=== PATIENT | female | born 1945 | race Hispanic/Latino ===

== ENCOUNTER → 2017-08-15 | Outpatient (CLI) | payer MEDICARE | END | disposition home or self-care (01) | LOC: SHCH 14:57 | PROVIDERS: ATTEND Internal Medicine Cardiovascular Disease | DX: I87.2 Venous insufficiency (chronic) (peripheral) (principal) | CPT/HCPCS: 93970 ==

== ENCOUNTER 2019-06-10 12:54 | Inpatient (IN) | payer MEDICARE ==
[2019-06-10] VITALS (10 sets, daily range): BP systolic 118–154; BP diastolic 48–81
[~2019-06-10] VITALS: Ht 124.5 cm; Wt 95.3 kg
[2019-06-10 13:31] LABS: BASOPHILS % (AUTO) 0.4 % (0.0-5.0); EOSINOPHILS % (AUTO) 0.2 % (0.0-8.0); HEMATOCRIT 34.7 % (36-48); LYMPHOCYTES % (AUTO) 3.3 % (21.0-51.0); MEAN CORPUSCULAR HEMOGLOBIN 28.7 pg (27.0-33.0); MEAN CORPUSCULAR HGB CONC 33.4 g/dL (32.0-36.0); MEAN CORPUSCULAR VOLUME 85.9 fL (79-99); MONOCYTES % (AUTO) 6.9 % (3.0-13.0); NEUTROPHILS % (AUTO) 87.5 % (40.0-77.0); NUCLEATED RED BLOOD CELLS 0.3 % (0.0-0.19); PLATELET COUNT (AUTO) 46 K/uL (130-400); RED BLOOD CELL COUNT(AUTO) 4.04 MIL/uL (4.00-5.50); RED CELL DISTRIBUTION WIDTH 13.2 % (11.0-15.5); WHITE BLOOD COUNT (AUTO) 9.6 K/uL (4.8-10.8)
[2019-06-10 13:42] LABS: APPEARANCE,URINE Turbid (CLEAR); BILIRUBIN,URINE Small (NEGATIVE); COLOR,URINE Dark Yellow (YELLOW); GLUCOSE, URINE (UA) >=1000 mg/dL (NEGATIVE); KETONES,URINE Negative (NEGATIVE); LEUKOCYTE ESTERASE ,URINE Small (NEGATIVE); NITRATE,URINE Negative (NEGATIVE); OCCULT BLOOD,URINE Large (NEGATIVE); PROTEIN,URINE POS 2+ mg/dL (NEGATIVE)
[2019-06-10 13:44] LABS: BILIRUBIN,TOTAL 2.5 mg/dL (0.2-1.0); CREATININE 2.7 mg/dL (0.5-1.5); POTASSIUM 4.3 mmol/L (3.5-5.1); TOTAL PROTEIN, SERUM 6.6 g/dL (6.0-8.3)
[2019-06-10 13:45] LABS: PLATELET MORPHOLOGY COMMENT MARKED DECREASE
[2019-06-10] MEDS ORDERED: SODIUM CHLORIDE 0.9% 1000ML 2,000 ML IV ONE (13:51)
[2019-06-10] MEDS ORDERED: INSULIN HUMULIN R 100 UNIT/ML 3ML ONE (13:57)
[2019-06-10 14:09] LABS: AMORPHOUS SEDIMENT,UR Moderate /LPF (None Seen); BACTERIA,URINE Moderate /HPF (None Seen); SQUAMOUS EPITHELIAL CELL,UR 0-2 /HPF (0-2)
[2019-06-10] MEDS ORDERED: DOXYCYCLINE 100MG+NS 250ML 250 ML IV ONE (14:48)
[2019-06-10 14:51] LABS: INR > 7.00 (0.85-1.15); PARTIAL THROMBOPLASTIN TIME > 120.0 SEC (26.3-35.5); PROTHROMBIN TIME > 63.0 SEC (9.6-11.6)
[2019-06-10] MEDS ORDERED: GLUCAGON 1MG KIT 1 MG ML IM PRN (15:00)
[2019-06-10] MEDS: DOXYCYCLINE 100MG+NS 250ML 250 ML IV SCH (15:00)
[2019-06-10] MEDS: SODIUM CHLORIDE 0.9% 1000ML 1,000 ML IV SCH ×2 (15:00→19:30)
[2019-06-10] MEDS ORDERED: DEXTROSE 50%-WATER 50 ML DISP.SYRIN IV PRN (15:00)
[2019-06-10 15:11] LABS: ABG BASE EXCESS -5.3 mmol/L (-2.0-3.0); ABG HCO3 19.3 mmol/L (21.0-28.0); ABG OXYGEN SATURATION 96.8 % (95.0-99.0); ABG PCO2 35 mmHg (32-45)
[2019-06-10 15:58] LABS: HEMOGLOBIN A1C 10.5 % (4.0-6.0)
[2019-06-10] MEDS ORDERED: INSULIN HUMULIN R 100 UNIT/ML 3ML SQ SCH ×2 (16:30→18:15)
[2019-06-10] MEDS: ONDANSETRON HCL 4 MG/2 ML VIAL IVP PRN (17:17)
[2019-06-10] MEDS ORDERED: PHYTONADIONE 10 MG/1 ML AMP IM SCH (17:45)
[2019-06-10 17:59] LABS: CREATINE KINASE, TOTAL 28 U/L (21-232); GAMMA GLUTAMYL TRANSFERASE 208 U/L (5-85)
[2019-06-10] MEDS ORDERED: VANCOMYCIN PROTOCOL PER PHARMACY IV SCH (18:00)
[2019-06-10] MEDS ORDERED: VANCOMYCIN 1.5 GM in SODIUM CHLORIDE 0.9% 250 ML IV SCH (18:00)
[2019-06-10] MEDS ORDERED: RENAL DOSE IV PRN (18:00)
[2019-06-10 18:23] LABS: ALBUMIN 1.8 g/dL (3.5-5.0); CREATININE 2.5 mg/dL (0.5-1.5); POTASSIUM 4.3 mmol/L (3.5-5.1); TOTAL PROTEIN, SERUM 5.9 g/dL (6.0-8.3)
[2019-06-10 18:28] LABS: HEMATOCRIT 33.1 % (36-48); MEAN CORPUSCULAR HEMOGLOBIN 28.6 pg (27.0-33.0); MEAN CORPUSCULAR HGB CONC 33.2 g/dL (32.0-36.0); MEAN CORPUSCULAR VOLUME 86.2 fL (79-99); NUCLEATED RED BLOOD CELLS 0.3 % (0.0-0.19); PLATELET COUNT (AUTO) 39 K/uL (130-400); RED BLOOD CELL COUNT(AUTO) 3.84 MIL/uL (4.00-5.50); RED CELL DISTRIBUTION WIDTH 13.2 % (11.0-15.5); WHITE BLOOD COUNT (AUTO) 6.8 K/uL (4.8-10.8)
[2019-06-10] MEDS ORDERED: COMPOUND IV REFRIGERATED 1 EACH IVSOLN MISC PRN (18:30)
[2019-06-10] MEDS ORDERED: SODIUM CHLORIDE 0.9% 1000ML 1,000 ML IV SCH (18:30)
[2019-06-10] MEDS ORDERED: PHYTONADIONE 10 MG in SODIUM CHLORIDE 0.9% 50 ML IV SCH ×4 (18:45)
--- NOTE | 2019-06-10 19:00 | NUR ---
REPORT RECEIVED FROM PATRICE SIMS, MED SURG NURSE, AND PATIENT RECEIVED IN ROOM 219; REPORT GIVEN TO PATRICE CLARK AT BEDSIDE
[2019-06-10 19:12] LABS: INR > 7.00 (0.85-1.15); PARTIAL THROMBOPLASTIN TIME > 120.0 SEC (26.3-35.5)
[2019-06-10 19:13] LABS: PROTHROMBIN TIME > 63.0 SEC (9.6-11.6)
--- NOTE | 2019-06-10 19:20 | NUR ---
RECEIVED TRANSFER TO ROOM 219. AWAKE AND ALERT. DENIES PAIN. UP TO BR TO VOID AND HAD BM MIXED WITH URINE SO COULD NOT SEND SAMPLE AT THIS TIME. ASSISTED TO BED AND PLACED ON BED SIDE MONITOR. NIBP, AND PULSE OXIMETER PLACED. CALL LIGHT GIVEN TO HER AND EXPLAINED . ENCOURAGED TO CALL FOR WANTS OR NEEDS.
--- NOTE | 2019-06-10 19:40 | NUR ---
TRANSFER TO ROOM 219 Received patient from ER at 1645. Alert oriented X 4. Ambulatory. Continent. Had urine X 1 and one formed, dark bowel movement, not collected; pending for stool sample to be collected for occult blood test. Admission was started. Patient was receiving doxycycline IV at time of arrival. Dr. Alcantar was called and notified of consult. Patient had a blood sugar draw at time of lactic acid recheck. Patient requested to have intravenous peripheral catheter removed from right antecubital S/T it was hurting. Site intact-looking but removed as requested S/T complaints of tenderness. Dr. Sanches came to see patient and evaluted patient and had ample discussion with family. Orders were received to D/C regular insulin sliding scale and administered a one time dose of 5 units of regular insulin SQ to right abdomen for blood sugar level 390mg/dL. Also, she had a dose of 5mg of vitamin K IM to right deltoid. She had a new hep lock started to left anterior forearm # 20 g and a bolus of 1000mL of NS was started. Also, a second hep lock was started to right anterior forearm # 20g. Report was called to nurse Mary for patient to go to room 219 for higher level of care. Dr. Ruiz was notified of consult: he gave orders and have been entered. Patient and family kep updated at all times. Patient was transferred with no issues.
[2019-06-10 19:53] LABS: PHOSPHORUS 2.3 mg/dL (2.5-4.9); URIC ACID 9.7 mg/dL (2.6-7.2)
--- NOTE | 2019-06-10 19:53 | NUR ---
HOLTER MONITOR Patient came connected to a Holter Monitor ordered as an outpatient by Dr. Mejia and she was kept on it and started on telemetry as ordered by Dr. Sanches.
[2019-06-10] MEDS: INSULIN HUMULIN R 100 UNIT/ML 3ML SQ SCH (20:49)
[2019-06-10] MEDS ORDERED: LEVO112T7 PO (21:08)
[2019-06-10] MEDS ORDERED: METO25TA6 PO (21:08)
[2019-06-10] MEDS ORDERED: PRAV20TA4 PO (21:08)
[2019-06-10] MEDS ORDERED: CELE200 PO (21:08)
[2019-06-10] MEDS ORDERED: LOSA25TA41 PO (21:08)
[2019-06-10] MEDS ORDERED: WARF6TAB6 PO (21:08)
[2019-06-10] MEDS ORDERED: AMLO5TAB9 PO (21:08)
[2019-06-10] MEDS: ZOSYN 3.375GM+NS 50ML 50 ML IV SCH (21:42)
[2019-06-10 23:57] LABS: CREATININE 2.3 mg/dL (0.5-1.5); POTASSIUM 3.9 mmol/L (3.5-5.1)
[2019-06-11] VITALS (16 sets, daily range): BP systolic 106–155; BP diastolic 46–72
[2019-06-11 00:05] LABS: PARTIAL THROMBOPLASTIN TIME 69.5 SEC (26.3-35.5)
[2019-06-11 00:10] LABS: INR 4.62 (0.85-1.15)
[2019-06-11] MEDS ORDERED: DOXYCYCLINE 100MG+NS 250ML 250 ML IV ONE (02:42)
[2019-06-11 02:45] LABS: BASOPHILS % (AUTO) 0.5 % (0.0-5.0); EOSINOPHILS % (AUTO) 0.8 % (0.0-8.0); MEAN CORPUSCULAR HEMOGLOBIN 28.7 pg (27.0-33.0); MONOCYTES % (AUTO) 10.8 % (3.0-13.0); NEUTROPHILS % (AUTO) 81.5 % (40.0-77.0); NUCLEATED RED BLOOD CELLS 0.5 % (0.0-0.19); PLATELET COUNT (AUTO) 36 K/uL (130-400); RED BLOOD CELL COUNT(AUTO) 3.45 MIL/uL (4.00-5.50); RED CELL DISTRIBUTION WIDTH 13.4 % (11.0-15.5); WHITE BLOOD COUNT (AUTO) 8.9 K/uL (4.8-10.8)
[2019-06-11] MEDS: DOXYCYCLINE 100MG+NS 250ML 250 ML IV SCH ×2 (02:50→14:09)
[2019-06-11 02:59] LABS: ALBUMIN 1.7 g/dL (3.5-5.0); BILIRUBIN,DIRECT 1.6 mg/dL (0.0-0.3); BILIRUBIN,TOTAL 2.1 mg/dL (0.2-1.0); CREATININE 2.3 mg/dL (0.5-1.5); MAGNESIUM 2.5 mg/dL (1.80-2.40); PHOSPHORUS 1.8 mg/dL (2.5-4.9); POTASSIUM 3.9 mmol/L (3.5-5.1); TOTAL PROTEIN, SERUM 5.5 g/dL (6.0-8.3); URIC ACID 9.1 mg/dL (2.6-7.2)
[2019-06-11] MEDS: SODIUM CHLORIDE 0.9% 1000ML 1,000 ML IV SCH (05:56)
[2019-06-11] MEDS: INSULIN HUMULIN R 100 UNIT/ML 3ML SQ SCH ×4 (06:26→21:21)
[2019-06-11 07:29] LABS: CREATININE 2.3 mg/dL (0.5-1.5); POTASSIUM 3.7 mmol/L (3.5-5.1)
[2019-06-11] MEDS: ZOSYN 3.375GM+NS 50ML 50 ML IV SCH (09:52)
--- NOTE | 2019-06-11 14:47 | NUR ---
DC PLAN VISITED WITH PATIENT. PATIENT LIVES WITH SPOUSE. INDEPENDENT ABLE TO PERFORM ADL'S. PATIENT HAS NO SERVICES. WALKER AND WHEEL CHAIR AVAILABLE FROM PREVIOUS KNEE SURGERY. Addendum: 06/11/19 at 1448 by GEE CONTE RN CM Amended: Links added.
--- NOTE | 2019-06-11 16:50 | NUR ---
PT WAS ORDERED A DIET, SHE HAD BEEN NPO AND WAS GOING TO ASK FOR SOMETHING TO EAT YET WILL REQUEST ONLY JELLO. HE WAS ADVISED THAT SHE NEEDED TO EAT SOMETHING IN ORDER TO TREAT THE BS OF 226, SHE TOOK A JELLO WITHOUT ANY PROBLEMS.
[2019-06-11] MEDS: MEROPENEM 1 GM VIAL IVP SCH (20:00)
[2019-06-11] MEDS: ACETAMINOPHEN 325 MG TAB PO PRN (21:20)
--- NOTE | 2019-06-11 22:49 | NUR ---
RUN OF WIDE COMPLEX TACHYCARDIA STRIP VIEWED BY DR MERAZ, NEW ORDER FOR MAG, K , POS LEVELS STAT- LAB NOTIFIED. PT ASYMPTOMATIC
[2019-06-11 23:26] LABS: MAGNESIUM 1.9 mg/dL (1.80-2.40); PHOSPHORUS 2.3 mg/dL (2.5-4.9); POTASSIUM 3.6 mmol/L (3.5-5.1)
[2019-06-11] MEDS ORDERED: MAGNESIUM 2GM PREMIX 50ML 50 ML IV ONE (23:52)
[2019-06-11] MEDS ORDERED: POTASSIUM CHLORIDE 20MEQ/100ML 100 ML IV ONE (23:53)
[2019-06-11] MEDS ORDERED: LIDOCAINE HCL-MPF 1% 2ML VIAL ONE (23:56)
[2019-06-12] VITALS (7 sets, daily range): BP systolic 128–160; BP diastolic 46–78
[2019-06-12] MEDS ORDERED: POTASSIUM CHLORIDE 10% ELIXIR 20 MEQ/15 ML UDCUP PO PRN
[2019-06-12] MEDS ORDERED: LIDOCAINE HCL-MPF 1% 2ML VIAL IV PRN
[2019-06-12] MEDS ORDERED: POTASSIUM CHLORIDE 20 MEQ ERTAB PO PRN
[2019-06-12] MEDS ORDERED: MAGNESIUM 2GM PREMIX 50ML 50 ML IV PRN
[2019-06-12] MEDS ORDERED: POTASSIUM CHLORIDE 20MEQ/100ML 100 ML IV PRN
[2019-06-12] MEDS ORDERED: PHARMACY COMMUNICATION MISC SCH ×2 (02:30→06:45)
[2019-06-12] MEDS: DOXYCYCLINE 100MG+NS 250ML 250 ML IV SCH ×2 (02:50→15:16)
--- NOTE | 2019-06-12 02:52 | NUR ---
06/11/19 UNABLE TO GIVE 2000HR DOSE OF MERREM NOT PROFILED ON EMAR.
[2019-06-12] MEDS: MEROPENEM 1 GM VIAL IVP SCH (03:10)
[2019-06-12 03:59] LABS: BASOPHILS % (AUTO) 0.3 % (0.0-5.0); EOSINOPHILS % (AUTO) 0.8 % (0.0-8.0); HEMATOCRIT 30.1 % (36-48); LYMPHOCYTES % (AUTO) 6.7 % (21.0-51.0); MEAN CORPUSCULAR HEMOGLOBIN 28.8 pg (27.0-33.0); MEAN CORPUSCULAR HGB CONC 32.6 g/dL (32.0-36.0); MEAN CORPUSCULAR VOLUME 88.5 fL (79-99); MONOCYTES % (AUTO) 8.8 % (3.0-13.0); NEUTROPHILS % (AUTO) 78.3 % (40.0-77.0); NUCLEATED RED BLOOD CELLS 0.3 % (0.0-0.19); PLATELET COUNT (AUTO) 51 K/uL (130-400); RED CELL DISTRIBUTION WIDTH 14.1 % (11.0-15.5); WHITE BLOOD COUNT (AUTO) 9.1 K/uL (4.8-10.8)
[2019-06-12] MEDS: ONDANSETRON HCL 4 MG/2 ML VIAL IVP PRN ×3 (04:08→16:23)
[2019-06-12 04:23] LABS: ALBUMIN 1.5 g/dL (3.5-5.0); CREATININE 2.1 mg/dL (0.5-1.5); MAGNESIUM 2.4 mg/dL (1.80-2.40); PHOSPHORUS 2.2 mg/dL (2.5-4.9); POTASSIUM 3.9 mmol/L (3.5-5.1); TOTAL PROTEIN, SERUM 5.6 g/dL (6.0-8.3)
[2019-06-12 05:02] LABS: ERYTHROCYTE SEDIMENTATION RATE 106 MM/HR (0-30)
[2019-06-12] MEDS: ACETAMINOPHEN 325 MG TAB PO PRN ×2 (05:03→16:11)
[2019-06-12 05:04] LABS: CRP QUANTITATIVE 262.8 mg/L (0.00-9.0)
[2019-06-12] MEDS: INSULIN HUMULIN R 100 UNIT/ML 3ML SQ SCH ×4 (05:42→21:17)
[2019-06-12 07:13] LABS: HEPATITIS A ANTIBODY IGM Negative (Negative); HEPATITIS B CORE IGM Negative (Negative); HEPATITIS Bs ANTIGEN SCREEN P Negative (Negative)
--- NOTE | 2019-06-12 08:00 | NUR ---
PT HAS BEEN RESTING AND OFFERING N/C OF HEADACHE OR ANY DISCOMFORT.
[2019-06-12] MEDS ORDERED: CEFTRIAXONE SODIUM 500 MG VIAL IV SCH (09:00)
--- NOTE | 2019-06-12 11:05 | NUR ---
DR. AUGUSTIN ADVISED OF THE ESBL REPORT AND HE STATED THAT HE HAD MADE SOME CHANGES TO THE ANTIBIOTICS AND ADVISED PT AND DAUGHTER OF THE PLAN OF CARE.
--- NOTE | 2019-06-12 11:30 | NUR ---
PT HAD REQUESTED ZOFRAN FOR NAUSEA PRIOR TO EATING LUNCH, DAUGHTER AT BEDSIDE AND HAS BEEN ASSISTING WITH PT'S CARE.
--- NOTE | 2019-06-12 13:45 | NUR ---
PT IS BACK FROM SURGERY AND HAS A SIZE 8 SHILEY PT WAS CONNECTED TO SAME VENT SETTINGS BUT AT 100% FIO2. PT WAS CONNECTED TO TECHNICAL SERVICES REP AND SHOWING RSR RHYTHM. V/S DOCUMENTED.
--- NOTE | 2019-06-12 14:20 | NUR ---
N/G TUBE WAS PLACED WITHOUT DIFFICULTY AND ON INTERMITTENT SUCTION, DRAINING GREEN/YELLOW BILE.
--- NOTE | 2019-06-12 17:30 | NUR ---
DR. SUE HERE AND ORDERS NOTED FOR BIOPSY OF THE BONE BY IR AFTER HE SPOKE WITH RUBEN MCCAIN PT'S DAUGHTER. EXPLAINED TO PATIENT AND SON WHAT HE PLANNED TO DO IN ORDER TO DIAGNOSIS OR RULE OUT MDS.
[2019-06-12] MEDS ORDERED: LEVOTHYROXINE 112 MCG TABLET ONE (20:57)
[2019-06-13] VITALS (27 sets, daily range): BP systolic 124–183; BP diastolic 47–124
[2019-06-13 03:45] LABS: BASOPHILS % (AUTO) 0.3 % (0.0-5.0); EOSINOPHILS % (AUTO) 0.9 % (0.0-8.0); HEMATOCRIT 30.3 % (36-48); LYMPHOCYTES % (AUTO) 8.7 % (21.0-51.0); MEAN CORPUSCULAR HEMOGLOBIN 28.3 pg (27.0-33.0); MEAN CORPUSCULAR VOLUME 85.8 fL (79-99); MONOCYTES % (AUTO) 8.3 % (3.0-13.0); NEUTROPHILS % (AUTO) 73.8 % (40.0-77.0); NUCLEATED RED BLOOD CELLS 0.2 % (0.0-0.19); PLATELET COUNT (AUTO) 82 K/uL (130-400); RED BLOOD CELL COUNT(AUTO) 3.53 MIL/uL (4.00-5.50); RED CELL DISTRIBUTION WIDTH 14.2 % (11.0-15.5); WHITE BLOOD COUNT (AUTO) 12.4 K/uL (4.8-10.8)
[2019-06-13] MEDS: DOXYCYCLINE 100MG+NS 250ML 250 ML IV SCH ×2 (03:51→14:31)
[2019-06-13] MEDS: MEROPENEM 1 GM VIAL IVP SCH (03:52)
[2019-06-13 04:00] LABS: INR 3.25 (0.85-1.15); PARTIAL THROMBOPLASTIN TIME 46.2 SEC (26.3-35.5); PROTHROMBIN TIME 33.5 SEC (9.6-11.6)
[2019-06-13 04:05] LABS: ALBUMIN 1.5 g/dL (3.5-5.0); BILIRUBIN,TOTAL 1.8 mg/dL (0.2-1.0); CREATININE 1.9 mg/dL (0.5-1.5); MAGNESIUM 2.6 mg/dL (1.80-2.40); PHOSPHORUS 2.6 mg/dL (2.5-4.9); POTASSIUM 3.9 mmol/L (3.5-5.1); TOTAL PROTEIN, SERUM 5.7 g/dL (6.0-8.3)
[2019-06-13] MEDS: ONDANSETRON HCL 4 MG/2 ML VIAL IVP PRN ×3 (05:46→22:03)
[2019-06-13] MEDS: LEVOTHYROXINE 112 MCG TABLET PO SCH (05:46)
[2019-06-13] MEDS: INSULIN HUMULIN R 100 UNIT/ML 3ML SQ SCH ×4 (07:30→22:10)
[2019-06-13] MEDS ORDERED: SODIUM CHLORIDE 0.9% 1000ML 1,000 ML IV SCH (09:00)
--- NOTE | 2019-06-13 09:21 | NUR ---
PROCEDURE PATIENT SCHEDULED FOR BONE MARROW BIOPSY. COAGULATION LEVELS ELEVATED AND DR Annie AGRAWAL NOTIFIED. HE RECOMMENDS CORRECTION OF ABNORMAL LEVELS FOR AN INR 1.5 OR LOWER AND RESCHEDULE BIOPSY FOR TOMORROW. Adeline PIÑA RN NOTIFIED OF PROCEDURE OUTCOME.
--- NOTE | 2019-06-13 09:29 | NUR ---
DR MERAZ NOTIFIED VIA PHONE ABOUT CT BIOPSY OF BONE MARROW NOT BEING DONE TODAY DUE TO COAGULATION STUDIES, DR AGRAWAL RECOMMENDING TO CORRECT INR AT LEAST AT 1.5 OR LESS, CURRENTLY 3.25, PENDING ORDERS FROM .
[2019-06-13] MEDS ORDERED: LOSARTAN 50 MG TABLET PO SCH (09:30)
[2019-06-13] MEDS ORDERED: METOPROLOL TARTRATE 25 MG TAB PO SCH (09:30)
[2019-06-13] MEDS ORDERED: HYDRALAZINE HCL 20 MG/ML VIAL IV PRN (10:45)
[2019-06-13] MEDS ORDERED: PHYTONADIONE 10 MG/1 ML AMP SQ SCH (10:45)
--- NOTE | 2019-06-13 10:53 | NUR ---
NOTED WITH SB 53, ASYMPTOMATIC, DR CESAR PRESENT AT NURSES STATION, MD NOTIFIED ABOUT PT'S STATUS, NEW ORDERS GIVEN TO DISCONTINUE SCHEDULED METOPROLOL
[2019-06-13] MEDS: AMLODIPINE BESYLATE 5 MG TAB PO SCH (11:43)
[2019-06-13] MEDS: ACETAMINOPHEN 325 MG TAB PO PRN ×2 (12:35→22:04)
--- NOTE | 2019-06-13 14:24 | NUR ---
patient is receiving blood Plasma this PM. Will initiate PT evaluation 06/14/2019 Addendum: 06/13/19 at 1427 by ELMIRA BELTRÁN, PT PT Amended: Links added.
--- NOTE | 2019-06-13 20:39 | NUR ---
Transferred to room 232 accompanied by daughter Nancy via wheelchair after report given to PCCU nurse. Patient alert and oriented. No c/o pain, sob. Status unchanged. Care of patient endorsed to Cystal RN.
[2019-06-14] VITALS (9 sets, daily range): BP systolic 138–160; BP diastolic 57–89
[2019-06-14] MEDS: DOXYCYCLINE 100MG+NS 250ML 250 ML IV SCH (03:18)
[2019-06-14] MEDS: MEROPENEM 1 GM VIAL IVP SCH (03:19)
[2019-06-14] MEDS: ONDANSETRON HCL 4 MG/2 ML VIAL IVP PRN ×3 (03:19→21:53)
[2019-06-14 05:12] LABS: HEMATOCRIT 31.7 % (36-48); MEAN CORPUSCULAR HEMOGLOBIN 28.8 pg (27.0-33.0); MEAN CORPUSCULAR HGB CONC 33.4 g/dL (32.0-36.0); MEAN CORPUSCULAR VOLUME 86.1 fL (79-99); NUCLEATED RED BLOOD CELLS 0.1 % (0.0-0.19); PLATELET COUNT (AUTO) 142 K/uL (130-400); RED BLOOD CELL COUNT(AUTO) 3.68 MIL/uL (4.00-5.50); RED CELL DISTRIBUTION WIDTH 14.2 % (11.0-15.5); WHITE BLOOD COUNT (AUTO) 13.6 K/uL (4.8-10.8)
[2019-06-14] MEDS: LEVOTHYROXINE 112 MCG TABLET PO SCH (05:36)
[2019-06-14 05:39] LABS: ALBUMIN 1.9 g/dL (3.5-5.0); BILIRUBIN,TOTAL 1.7 mg/dL (0.2-1.0); CREATININE 1.7 mg/dL (0.5-1.5); INR 1.68 (0.85-1.15); PHOSPHORUS 2.4 mg/dL (2.5-4.9); POTASSIUM 3.6 mmol/L (3.5-5.1); PROTHROMBIN TIME 17.8 SEC (9.6-11.6); TOTAL PROTEIN, SERUM 6.4 g/dL (6.0-8.3)
[2019-06-14] MEDS: INSULIN HUMULIN R 100 UNIT/ML 3ML SQ SCH ×4 (06:58→21:00)
[2019-06-14] MEDS: AMLODIPINE BESYLATE 5 MG TAB PO SCH (08:19)
[2019-06-14] MEDS ORDERED: MIDAZOLAM HCL 1 MG/ML 2ML VIAL ONE (09:41)
[2019-06-14] MEDS ORDERED: FENTANYL CITRATE PF 50 MCG/1 ML 2ML VIAL ONE (09:41)
--- NOTE | 2019-06-14 10:49 | NUR ---
CT GUIDED BONE MARROW BIOPSY PROCEDURE PERFORMED BY DR. AGRAWAL. PUNCTURE SITE RIGHT LOWER LUMBAR/ILIAC CREST. PATIENT TOLERATED PROCEDURE WELL. SPECIMEN X 1 COLLECTED. SPECIMEN SENT TO LAB. END OF PROCEDURE AT 1052. BIOPSY NEEDLE REMOVED AND DRESSING APPLIED. NO BLEEDING NOTED. CALLED REPORT TO PATRICE GONZALES. PATIENT TRANSPORTED TO [facility] VIA BED AT 1125. PT STABLE, AAO X3 WITH NO C/O PAIN.
--- NOTE | 2019-06-14 15:10 | NUR ---
RDSCREEN - LOW ALBUMIN Pt NPO at time of screen. Pt with fluctuating appetite prior to NPO status. Pt with increased malnutrition risk, also with Obesity Class III (BMI 63.8); Recommend 30mL ProMod BID. Pt with altered nutrition related lab values secondary to endocrine and liver dysfunction (BG 203, AST 139, ALT 164). RD to continue to monitor. Please notify RD as additional nutrition concerns arise. Thank you. Addendum: 06/14/19 at [address] Amended: Links added.
[2019-06-14 17:09] LABS: ROCKY MT SPOTTED FEVER IGG <1:64 (Neg:<1:64); TYPHUS FEVER AB IGG <1:64 (Neg:<1:64)
[2019-06-14] MEDS: SODIUM CHLORIDE 0.9% 1000ML 1,000 ML IV SCH (17:40)
[2019-06-14] MEDS: ACETAMINOPHEN 325 MG TAB PO PRN (21:54)
[2019-06-14] MEDS: SIMVASTATIN 10 MG TABLET PO SCH (21:54)
[2019-06-15] VITALS: BP 131/57
[2019-06-15 03:56] VITALS: BP 162/72
[2019-06-15 05:17] LABS: BASOPHILS % (AUTO) 0.3 % (0.0-5.0); EOSINOPHILS % (AUTO) 1.3 % (0.0-8.0); LYMPHOCYTES % (AUTO) 14.1 % (21.0-51.0); MEAN CORPUSCULAR HEMOGLOBIN 28.7 pg (27.0-33.0); MONOCYTES % (AUTO) 4.7 % (3.0-13.0); NEUTROPHILS % (AUTO) 73.9 % (40.0-77.0); NUCLEATED RED BLOOD CELLS 0.1 % (0.0-0.19); PLATELET COUNT (AUTO) 189 K/uL (130-400); RED BLOOD CELL COUNT(AUTO) 3.45 MIL/uL (4.00-5.50); RED CELL DISTRIBUTION WIDTH 14.2 % (11.0-15.5); WHITE BLOOD COUNT (AUTO) 14.2 K/uL (4.8-10.8)
[2019-06-15 05:30] LABS: CREATININE 1.5 mg/dL (0.5-1.5); MAGNESIUM 1.8 mg/dL (1.80-2.40); PHOSPHORUS 2.9 mg/dL (2.5-4.9); POTASSIUM 3.8 mmol/L (3.5-5.1)
[2019-06-15] MEDS: LEVOTHYROXINE 112 MCG TABLET PO SCH (05:53)
[2019-06-15] MEDS: ONDANSETRON HCL 4 MG/2 ML VIAL IVP PRN ×4 (05:53→22:31)
[2019-06-15] MEDS: MEROPENEM 1 GM VIAL IVP SCH (05:53)
[2019-06-15 05:55] LABS: INR 1.26 (0.85-1.15); PARTIAL THROMBOPLASTIN TIME 29.6 SEC (26.3-35.5); PROTHROMBIN TIME 13.5 SEC (9.6-11.6)
[2019-06-15] MEDS: INSULIN HUMULIN R 100 UNIT/ML 3ML SQ SCH ×2 (05:56→12:10)
[2019-06-15 08:14] VITALS: BP 148/60
[2019-06-15] MEDS: AMLODIPINE BESYLATE 5 MG TAB PO SCH (10:40)
[2019-06-15] MEDS: SODIUM CHLORIDE 0.9% 1000ML 1,000 ML IV SCH ×2 (15:31→15:33)
--- NOTE | 2019-06-15 16:04 | NUR ---
cm note orders received for AIU at [facility] gil spoke to daughter lionel. and in agreement, referral faxed to [facility]. spoke to edi at [facility] states received clinical information and will forward information to their pharmacy and will let cm know if can accept. updated pts daughter lionel on above, and in agreement. informed she would have to go register patient at [facility] when they approve. verbalizes understanding.
[2019-06-15 16:09] VITALS: BP 138/68
[2019-06-15] MEDS: INSULIN LISPRO 100 UNIT/ML 3ML SQ SCH ×3 (17:19→22:48)
[2019-06-15 20:00] VITALS: BP 152/58
--- NOTE | 2019-06-15 22:00 | NUR ---
PT REQUESTED ZOFRAN AND TYLENOL FOR NAUSEA AND PAIN. ABLE TO AMBULATE WITH ASSIST. HAD BOWEL MOVEMENT. PT STATED NO FURTHER CONCERNS. MEDICATIONS GIVEN SCHEDULED. PICC LINE PATENT. INSERTED TODAY.
[2019-06-15] MEDS: SIMVASTATIN 10 MG TABLET PO SCH (22:24)
[2019-06-15] MEDS: ACETAMINOPHEN 325 MG TAB PO PRN (22:31)
[2019-06-15] MEDS: INSULIN GLARGINE 100 UNITS/ML 10 ML VIAL SQ SCH (22:48)
[2019-06-16] VITALS: BP 134/60
[2019-06-16 03:48] LABS: ALBUMIN 1.6 g/dL (3.5-5.0); BILIRUBIN,DIRECT 0.5 mg/dL (0.0-0.3); BILIRUBIN,TOTAL 0.9 mg/dL (0.2-1.0); CREATININE 1.4 mg/dL (0.5-1.5); POTASSIUM 3.8 mmol/L (3.5-5.1); TOTAL PROTEIN, SERUM 5.6 g/dL (6.0-8.3)
[2019-06-16 04:24] VITALS: BP 143/60
[2019-06-16] MEDS: MEROPENEM 1 GM VIAL IVP SCH (04:32)
[2019-06-16] MEDS: SODIUM CHLORIDE 0.9% 1000ML 1,000 ML IV SCH (05:11)
[2019-06-16] MEDS: LEVOTHYROXINE 112 MCG TABLET PO SCH (05:53)
[2019-06-16] MEDS: INSULIN LISPRO 100 UNIT/ML 3ML SQ SCH ×7 (05:54→22:24)
[2019-06-16 07:30] VITALS: BP 156/64
[2019-06-16] MEDS: AMLODIPINE BESYLATE 5 MG TAB PO SCH (07:42)
--- NOTE | 2019-06-16 08:00 | NUR ---
ASSESSMENT PT IS AAOX3 DENIES CP DENIES SOB DENIES NV NO COMPLAINTS, RESTING SITTING UPRIGHT IN BED. RIGHT ARM PICC LINE SITE CLEAN AND DRY. CALL LIGHT WITHIN REACH.
[2019-06-16 11:30] VITALS: BP 130/64
[2019-06-16] MEDS: LOSARTAN 50 MG TABLET PO SCH (12:19)
[2019-06-16] MEDS: ONDANSETRON HCL 4 MG/2 ML VIAL IVP PRN ×3 (12:22→23:11)
--- NOTE | 2019-06-16 15:00 | NUR ---
cm note call made to [facility], spoke to gualberto, states he called pharmacy and they have approved the meds, states pt/family will need to come and register pt tuesday. and then they will be able provide an appointment to the pt.
[2019-06-16 15:30] VITALS: BP 151/71
[2019-06-16] MEDS: WARFARIN SODIUM 2 MG TAB PO SCH (16:15)
[2019-06-16] MEDS: ACETAMINOPHEN 325 MG TAB PO PRN ×3 (16:22→23:12)
--- NOTE | 2019-06-16 18:00 | NUR ---
STATUS SITTING UP IN CHAIR NO COMPLAINTS, DENIES CP DENIES SOB DENIES NV DENIES FEELING CHILLS. CALL LIGHT WITHIN REACH.
[2019-06-16] MEDS: SIMVASTATIN 10 MG TABLET PO SCH (19:50)
[2019-06-16 20:33] VITALS: BP 142/69
--- NOTE | 2019-06-16 21:00 | NUR ---
PT ABLE TO AMBULATE WITH MINIMAL ASSIST. NO DISTRESS NOTED. ABLE TO TAKE MEDICATIONS DIRECTED. DOES CONTINUE WITH NAUSEA AND VOMITING.
[2019-06-16] MEDS: INSULIN GLARGINE 100 UNITS/ML 10 ML VIAL SQ SCH (22:24)
[2019-06-17] VITALS: BP 138/56
[2019-06-17 04:00] VITALS: BP 145/75
[2019-06-17] MEDS: MEROPENEM 1 GM VIAL IVP SCH (04:15)
[2019-06-17] MEDS: LEVOTHYROXINE 112 MCG TABLET PO SCH (04:32)
[2019-06-17 04:49] LABS: BASOPHILS % (AUTO) 0.3 % (0.0-5.0); LYMPHOCYTES % (AUTO) 10.2 % (21.0-51.0); MEAN CORPUSCULAR HEMOGLOBIN 28.9 pg (27.0-33.0); MEAN CORPUSCULAR HGB CONC 32.7 g/dL (32.0-36.0); MEAN CORPUSCULAR VOLUME 88.4 fL (79-99); MONOCYTES % (AUTO) 5.2 % (3.0-13.0); NEUTROPHILS % (AUTO) 80.8 % (40.0-77.0); PLATELET COUNT (AUTO) 237 K/uL (130-400); RED BLOOD CELL COUNT(AUTO) 2.94 MIL/uL (4.00-5.50); RED CELL DISTRIBUTION WIDTH 14.3 % (11.0-15.5); WHITE BLOOD COUNT (AUTO) 11.5 K/uL (4.8-10.8)
[2019-06-17 05:03] LABS: CREATININE 1.3 mg/dL (0.5-1.5); POTASSIUM 3.9 mmol/L (3.5-5.1)
[2019-06-17 05:12] LABS: INR 1.01 (0.85-1.15); PROTHROMBIN TIME 10.9 SEC (9.6-11.6)
[2019-06-17] MEDS: INSULIN LISPRO 100 UNIT/ML 3ML SQ SCH ×7 (06:13→21:57)
[2019-06-17 07:30] VITALS: BP 138/65
[2019-06-17] MEDS: AMLODIPINE BESYLATE 5 MG TAB PO SCH (08:00)
[2019-06-17] MEDS: LOSARTAN 50 MG TABLET PO SCH (08:00)
--- NOTE | 2019-06-17 10:00 | NUR ---
cm note provided daughter lionel OLIVEROS form to go register at [facility] on tuesday, verbalizes understanding.
[2019-06-17 11:30] VITALS: BP 135/56
[2019-06-17 15:30] VITALS: BP 134/61
[2019-06-17] MEDS: WARFARIN SODIUM 2 MG TAB PO SCH (16:25)
[2019-06-17 20:20] VITALS: BP 156/68
[2019-06-17] MEDS: SIMVASTATIN 10 MG TABLET PO SCH (21:51)
[2019-06-17] MEDS: INSULIN GLARGINE 100 UNITS/ML 10 ML VIAL SQ SCH (21:56)
[2019-06-17] MEDS: ONDANSETRON HCL 4 MG/2 ML VIAL IVP PRN (23:30)
[2019-06-17] MEDS: ACETAMINOPHEN 325 MG TAB PO PRN (23:30)
[2019-06-18] VITALS: BP 141/69
[2019-06-18] MEDS: MEROPENEM 1 GM VIAL IVP SCH (03:09)
[2019-06-18 04:00] VITALS: BP 126/61
[2019-06-18 04:55] LABS: BASOPHILS % (AUTO) 0.3 % (0.0-5.0); EOSINOPHILS % (AUTO) 2.1 % (0.0-8.0); HEMATOCRIT 24.8 % (36-48); LYMPHOCYTES % (AUTO) 11.4 % (21.0-51.0); MEAN CORPUSCULAR HEMOGLOBIN 28.7 pg (27.0-33.0); MEAN CORPUSCULAR HGB CONC 31.9 g/dL (32.0-36.0); MEAN CORPUSCULAR VOLUME 90.2 fL (79-99); MONOCYTES % (AUTO) 6.4 % (3.0-13.0); NEUTROPHILS % (AUTO) 78.8 % (40.0-77.0); PLATELET COUNT (AUTO) 266 K/uL (130-400); RED BLOOD CELL COUNT(AUTO) 2.75 MIL/uL (4.00-5.50); RED CELL DISTRIBUTION WIDTH 14.3 % (11.0-15.5); WHITE BLOOD COUNT (AUTO) 11.2 K/uL (4.8-10.8)
[2019-06-18 05:37] LABS: CREATININE 1.4 mg/dL (0.5-1.5); POTASSIUM 3.9 mmol/L (3.5-5.1)
[2019-06-18] MEDS: LEVOTHYROXINE 112 MCG TABLET PO SCH (05:40)
[2019-06-18] MEDS: INSULIN LISPRO 100 UNIT/ML 3ML SQ SCH ×6 (06:24→16:04)
[2019-06-18] MEDS: LOSARTAN 50 MG TABLET PO SCH (08:11)
[2019-06-18] MEDS: AMLODIPINE BESYLATE 5 MG TAB PO SCH (08:11)
[2019-06-18 08:20] VITALS: BP 121/60
--- NOTE | 2019-06-18 10:29 | NUR ---
RD FOLLOW UP PT IS TOLERATING FEEDINGS AT THIS TIME. ESBL FOUND IN URINE. RENAL FUNCTION IMPROVED. LABS AND MEDS REVIEWED. DIET: HEART HEALTHY, 75GMCCD, PROMOD BID. PO INTAKE 75-100%. SKIN IS INTACT. RD RECOMMENDATIONS: CONTINUE CURRENT DIET CONTINUE PROMOD BID MONITOR PO INTAKE AND TOLERANCE Addendum: 06/18/19 at [address] Amended: Links added.
[2019-06-18 12:55] VITALS: BP 123/67
[2019-06-18] MEDS ORDERED: METF-444 PO (13:55)
[2019-06-18 16:24] VITALS: BP 137/60
[2019-06-18] MEDS: WARFARIN SODIUM 2 MG TAB PO SCH (16:35)
--- NOTE | 2019-06-18 17:58 | NUR ---
patient discharged home at this time with PICC line in place; patient to have antibiotics given as per [facility] at [facility]; patient has scheduled appt for tomorrow; new prescription for metformin sent to [facility] pharmacy as noted in DC papers; patient's son at bedside; patient continues to have heart monitor in place to be later evaluated by MD; all questions answered; dc instructions and follow up appts given; telepack removed and handed to air and hydronic balancing technician; patient accompanied by son and discharged home
== END 2019-06-18 18:09 | disposition home or self-care (01) | DRG 871 ==
LOC: EDH 12:54 → EDHIP 14:58 → 3CH 16:34 → 2CH 19:22 → 2AH 06-13 22:01
PROVIDERS: ADMIT Family Medicine; ATTEND Family Medicine
PROC: 30233K1 Transfusion of Nonautologous Frozen Plasma into Peripheral Vein, Percutaneous Approach (ICD-10-PCS; 2019-06-13)
PROC: 07DR3ZX Extraction of Iliac Bone Marrow, Percutaneous Approach, Diagnostic (ICD-10-PCS; principal; 2019-06-14)
PROC: 02HV33Z Insertion of Infusion Device into Superior Vena Cava, Percutaneous Approach (ICD-10-PCS; 2019-06-15)
PROC: B548ZZA Ultrasonography of Superior Vena Cava, Guidance (ICD-10-PCS; 2019-06-15)
DX: A41.9 Sepsis, unspecified organism (principal); G93.41 Metabolic encephalopathy; N13.6 Pyonephrosis; E87.1 Hypo-osmolality and hyponatremia; D68.59 Other primary thrombophilia; D61.818 Other pancytopenia; I48.20 Chronic atrial fibrillation, unspecified; Z16.12 Extended spectrum beta lactamase (ESBL) resistance; Z16.24 Resistance to multiple antibiotics; Z68.44 Body mass index [BMI] 60.0-69.9, adult; E87.2 Acidosis; K52.9 Noninfective gastroenteritis and colitis, unspecified; I48.91 Unspecified atrial fibrillation; E86.0 Dehydration; I12.9 Hypertensive chronic kidney disease with stage 1 through stage 4 chronic kidney disease, or unspecified chronic kidney disease; B96.20 Unspecified Escherichia coli [E. coli] as the cause of diseases classified elsewhere; E03.9 Hypothyroidism, unspecified; E11.22 Type 2 diabetes mellitus with diabetic chronic kidney disease; E66.9 Obesity, unspecified; E78.5 Hyperlipidemia, unspecified; E86.1 Hypovolemia; G47.33 Obstructive sleep apnea (adult) (pediatric); K76.9 Liver disease, unspecified; M19.90 Unspecified osteoarthritis, unspecified site; N18.2 Chronic kidney disease, stage 2 (mild); Z96.653 Presence of artificial knee joint, bilateral; E11.65 Type 2 diabetes mellitus with hyperglycemia; Z83.3 Family history of diabetes mellitus; Z79.01 Long term (current) use of anticoagulants
CPT/HCPCS: 36415; 36600; 38222; 71045; 74176; 76705; 76770; 80048; 80053; 80074; 80076; 81001; 82010; 82140; 82150; 82270; 82550; 82570; 82803; 82948; 82977; 83036; 83605; 83690; 83735; 84100; 84132; 84145; 84484; 84550; 85025; 85027; 85610; 85651; 85730; 86038; 86140; 86162; 86200; 86215; 86235; 86757; 86850; 86900; 86901; 86927; 87040; 87077; 87088; 87186; 87804; 93005; 97039; 99152; 99153; C1894; G0378; J0360; J1815; J2185; J2250; J2405; J2543; J3010; J3370; J3430; J3475; J3480; J3490; J7030; P9017

== ENCOUNTER → 2019-06-25 | Outpatient (CLI) | payer MEDICARE ==
[~2019-06-25] MED LIST: AMLO5TAB9 PO; LEVO112T7 PO; LOSA25TA41 PO; METF-444 PO; METO25TA6 PO; PRAV20TA4 PO
== END | disposition home or self-care (01) ==
LOC: SHCH 14:28
PROVIDERS: ATTEND Internal Medicine Cardiovascular Disease
DX: I51.7 Cardiomegaly (principal); I48.0 Paroxysmal atrial fibrillation
CPT/HCPCS: 93306

== ENCOUNTER 2019-12-23 06:53 | Observation (INO) | payer MEDICARE ==
[~2019-12-23] VITALS: Ht 154.9 cm; Wt 97.4 kg
[2019-12-23 08:14] VITALS: BP 117/54
[2019-12-23 09:27] LABS: HEMATOCRIT 35.3 % (36-48); MEAN CORPUSCULAR HEMOGLOBIN 30.7 pg (27.0-33.0); MEAN CORPUSCULAR HGB CONC 33.7 g/dL (32.0-36.0); RED BLOOD CELL COUNT(AUTO) 3.88 MIL/uL (4.00-5.50); RED CELL DISTRIBUTION WIDTH 13.3 % (11.0-15.5); WHITE BLOOD COUNT (AUTO) 7.9 K/uL (4.8-10.8)
[2019-12-23 09:34] LABS: CREATININE 1.1 mg/dL (0.5-1.5); POTASSIUM 4.5 mmol/L (3.5-5.1)
[2019-12-23 09:37] LABS: INR 1.09 (0.85-1.15); PROTHROMBIN TIME 11.7 SEC (9.6-11.6)
[2019-12-23] MEDS ORDERED: WARF6TAB6 PO (10:16)
[2019-12-23] MEDS ORDERED: WARF3TAB7 PO (10:16)
[2019-12-23] MEDS ORDERED: CELE200 PO (10:16)
[2019-12-23 11:00] VITALS: BP 101/16
[2019-12-23] MEDS ORDERED: GLUCAGON 1MG KIT 1 MG ML IM PRN (11:15)
[2019-12-23] MEDS ORDERED: DEXTROSE 50%-WATER 50 ML DISP.SYRIN IV PRN (11:15)
[2019-12-23] MEDS: INSULIN HUMULIN R 100 UNIT/ML 3ML SQ SCH ×3 (11:30→20:19)
--- NOTE | 2019-12-23 14:43 | NUR ---
CARDIOLOGY CONSULT/MD VISIT DR LINDEN SLAUGHTER & Jose SAMUEL IN TO SEE PT, PENDING CARDIAC CLEARANCE FOR SX. UPDATED ON PT'S STATUS & PLAN OF CARE.
[2019-12-23 16:00] VITALS: BP 134/56
--- NOTE | 2019-12-23 16:07 | NUR ---
MD VISIT DR JUDGE IN TO SEE PT. PT SITTING IN CHAIR DURING MD VISIT W/LT ARM ELEVATED ON PILLOW. MD PLANS FOR PT TO HAVE OPERATIVE FIXATION OF LT DISTAL RADIAL FX TOMORROW, 12/24/19. SPOKE W/EPIDEMIOLOGY INVESTIGATOR, KATARINA, VIA TELEPHONE @ THIS TIME FOR POSSIBLE 0730 START TIME. EPIDEMIOLOGY INVESTIGATOR TO NOTIFY STAFF OF SX START TIME.
--- NOTE | 2019-12-23 16:14 | NUR ---
MD VISIT Humberto HOLDEN SURGICAL SCRUB TECHNICIAN IN TO SEE PT FOR MED MGT CONSULT. UPDATED ON PT'S STATUS & PLAN OF CARE REVIEWED.
[2019-12-23] MEDS ORDERED: ACETAMINOPHEN 325 MG TAB PO PRN (16:30)
[2019-12-23] MEDS ORDERED: HYDRALAZINE HCL 20 MG/ML VIAL IV PRN (16:30)
[2019-12-23] MEDS ORDERED: ONDANSETRON HCL 4 MG/2 ML VIAL IV PRN (16:30)
[2019-12-23] MEDS: SODIUM CHLORIDE 0.9% 1000ML 1,000 ML IV SCH (17:19)
--- NOTE | 2019-12-23 17:44 | NUR ---
cm note met with pt and states resides with daughter flo and her family. has walker but does not use. pt drives. independent with adls/ambulation, no provider ho home services. . dc plan is back home. no dc needs. feels safe to return home. Addendum: 12/23/19 at 1751 by JUSTIN SIEGEL CM Amended: Links added.
[2019-12-23] MEDS: ACETAMINOPHEN 325 MG TAB PO PRN ×2 (19:29→23:51)
[2019-12-23] MEDS: METOPROLOL TARTRATE 25 MG TAB PO SCH (19:33)
[2019-12-23 20:00] VITALS: BP 142/45
[2019-12-23] MEDS ORDERED: ATORVASTATIN CALCIUM 10 MG TABLET PO SCH (21:00)
[2019-12-24] VITALS (23 sets, daily range): BP systolic 124–151; BP diastolic 48–86
[2019-12-24 04:06] LABS: CREATININE 1.1 mg/dL (0.5-1.5); POTASSIUM 4.1 mmol/L (3.5-5.1)
[2019-12-24 04:08] LABS: HEMATOCRIT 32.9 % (36-48); MEAN CORPUSCULAR HEMOGLOBIN 30.2 pg (27.0-33.0); MEAN CORPUSCULAR HGB CONC 33.7 g/dL (32.0-36.0); MEAN CORPUSCULAR VOLUME 89.6 fL (79-99); RED BLOOD CELL COUNT(AUTO) 3.67 MIL/uL (4.00-5.50); RED CELL DISTRIBUTION WIDTH 13.2 % (11.0-15.5); WHITE BLOOD COUNT (AUTO) 5.9 K/uL (4.8-10.8)
[2019-12-24] MEDS: SODIUM CHLORIDE 0.9% 1000ML 1,000 ML IV SCH ×3 (04:35→14:29)
[2019-12-24] MEDS: MORPHINE SULFATE 2 MG/ML 1ML SYG IV PRN ×2 (04:35→13:34)
[2019-12-24] MEDS: INSULIN HUMULIN R 100 UNIT/ML 3ML SQ SCH ×2 (05:24→11:30)
[2019-12-24] MEDS ORDERED: LIDOCAINE PF 2% 5ML ABBOJECT ONE (05:49)
[2019-12-24] MEDS ORDERED: ONDANSETRON HCL 4 MG/2 ML VIAL ONE (05:49)
[2019-12-24] MEDS ORDERED: FENTANYL CITRATE PF 50 MCG/1 ML 2ML VIAL ONE (05:50)
[2019-12-24] MEDS ORDERED: ROCURONIUM 10MG/1ML SYR 10 MG/ML ML ONE (05:50)
[2019-12-24] MEDS ORDERED: PROPOFOL 10 MG/ML 20ML VIAL IV ONE (05:50)
[2019-12-24] MEDS ORDERED: ROPIVACAINE 0.5% 5MG/ML 30ML IJ ONE (05:58)
[2019-12-24] MEDS: CEFAZOLIN SODIUM 1 GM VIAL ONE ×2 (06:38→07:38)
[2019-12-24] MEDS ORDERED: EPHEDRINE SULFATE 50 MG/ML AMPULE ONE (07:11)
[2019-12-24] MEDS ORDERED: NEOSTIGMINE 5MG/5ML SYR IV ONE (07:34)
[2019-12-24] MEDS ORDERED: GLYCOPYRROLATE 1 MG/5 ML SYRINGE ONE (07:34)
[2019-12-24] MEDS ORDERED: MEPERIDINE-PF 25 MG/ML SYG ONE (08:08)
[2019-12-24] MEDS ORDERED: FERROUS FUMARATE 324 MG TABLET PO PRN (08:30)
[2019-12-24] MEDS: ACETAMINOPHEN EXTRA STRENGTH 500 MG TABLET PO SCH ×2 (08:30→14:29)
[2019-12-24] MEDS ORDERED: OXYCODONE HCL 5 MG TAB PO PRN (08:30)
[2019-12-24] MEDS ORDERED: POTASSIUM CHLORIDE 20MEQ/100ML 100 ML IV PRN (08:30)
[2019-12-24] MEDS ORDERED: POTASSIUM CHLORIDE 20 MEQ ERTAB PO PRN (08:30)
[2019-12-24] MEDS ORDERED: POTASSIUM CHLORIDE 10% ELIXIR 20 MEQ/15 ML UDCUP PO PRN (08:30)
[2019-12-24] MEDS ORDERED: DIPHENHYDRAMINE HCL 25 MG CAPSULE PO PRN (08:30)
[2019-12-24] MEDS ORDERED: DiphenhydrAMINE HCL 50 MG/ML VIAL IVP PRN (08:30)
[2019-12-24] MEDS ORDERED: CALCIUM CARBONATE 500 MG TABLET PO PRN (08:30)
[2019-12-24] MEDS ORDERED: FAMOTIDINE 20MG TAB 20 MG TAB PO SCH (09:00)
[2019-12-24] MEDS ORDERED: POLYETHYLENE GLYCOL 3350 17 GM POWD.PACK PO SCH (09:00)
[2019-12-24] MEDS: METOPROLOL TARTRATE 25 MG TAB PO SCH (09:00)
[2019-12-24] MEDS ORDERED: LOSARTAN 50 MG TABLET PO SCH (09:00)
[2019-12-24] MEDS ORDERED: AMLODIPINE BESYLATE 5 MG TAB PO SCH (09:00)
[2019-12-24] MEDS ORDERED: PSYLLIUM SEED 1 EACH PACKET PO SCH (12:00)
[2019-12-24] MEDS: ACETAMINOPHEN 325 MG TAB PO PRN (14:28)
--- NOTE | 2019-12-24 17:28 | NUR ---
[id number] PATIENT SIGNED CERVANTES LETTER , I FAXED [employer]ERVANTES LETTER TO [id number] AND PLACED IN CHART UNDER CONSENT TAB.
[2019-12-26] MEDS ORDERED: BISACODYL 5 MG TABLET.DR PO PRN (08:30)
[2019-12-27] MEDS ORDERED: BISACODYL 10 MG SUPP.RECT RC PRN (08:30)
== END 2019-12-24 17:36 | disposition home or self-care (01) ==
LOC: 4AH 07:54 → INTOOBSV 07:54
PROVIDERS: ADMIT Orthopaedic Surgery; ATTEND Orthopaedic Surgery
DX: S52.572A Other intraarticular fracture of lower end of left radius, initial encounter for closed fracture (principal); M19.90 Unspecified osteoarthritis, unspecified site; I10 Essential (primary) hypertension; I48.91 Unspecified atrial fibrillation; E11.9 Type 2 diabetes mellitus without complications; I48.0 Paroxysmal atrial fibrillation; J45.909 Unspecified asthma, uncomplicated; E11.22 Type 2 diabetes mellitus with diabetic chronic kidney disease; I12.9 Hypertensive chronic kidney disease with stage 1 through stage 4 chronic kidney disease, or unspecified chronic kidney disease; N18.9 Chronic kidney disease, unspecified; E03.9 Hypothyroidism, unspecified; E66.9 Obesity, unspecified; E78.00 Pure hypercholesterolemia, unspecified; E78.5 Hyperlipidemia, unspecified; Z96.653 Presence of artificial knee joint, bilateral; Z79.01 Long term (current) use of anticoagulants; W18.39XA Other fall on same level, initial encounter; Y93.89 Activity, other specified; Y92.89 Other specified places as the place of occurrence of the external cause; Y99.8 Other external cause status
CPT/HCPCS: 25609; 36415 ×2; 73110; 80048 ×2; 80061; 82948 ×7; 83880; 85027 ×2; 85610; 85730; 93005; 96361 ×2; 96374; 96376; A4222; A4223; A4600; A4649 ×4; A4663; A4930; A6223; C1713 ×3; C1762; C1776; G0378 ×18; J0690; J2001; J2175; J2405; J2704; J2710; J2795; J3010; J3490 ×2; J7030 ×2

== ENCOUNTER → 2020-06-11 | Outpatient (CLI) | payer MEDICARE ==
[~2020-06-11] MED LIST changes: +AMLO-257 PO; -AMLO5TAB9 PO; +CELE200 PO; +WARF3TAB7 PO; +WARF6TAB6 PO
== END | disposition home or self-care (01) ==
LOC: SHCH 13:00
PROVIDERS: ATTEND Internal Medicine Cardiovascular Disease
DX: I87.2 Venous insufficiency (chronic) (peripheral) (principal); K21.9 Gastro-esophageal reflux disease without esophagitis; I73.9 Peripheral vascular disease, unspecified
CPT/HCPCS: 93925; 93970

== ENCOUNTER → 2023-05-30 | Outpatient (CLI) | payer OTHER, MEDICARE | END | disposition home or self-care (01) | LOC: SHCH 14:09 | PROVIDERS: ATTEND Internal Medicine Cardiovascular Disease | DX: I11.9 Hypertensive heart disease without heart failure (principal); I48.91 Unspecified atrial fibrillation; E11.9 Type 2 diabetes mellitus without complications; E78.5 Hyperlipidemia, unspecified | CPT/HCPCS: 93306 ==

== ENCOUNTER → 2024-04-17 | Outpatient (CLI) | payer OTHER, MEDICARE ==
[2024-04-17 13:01] LABS: INR 1.61 (0.85-1.15); PROTHROMBIN TIME 17.2 SEC (9.6-11.6)
== END | disposition home or self-care (01) ==
LOC: LAB 10:16
PROVIDERS: ATTEND Internal Medicine Cardiovascular Disease
DX: I48.91 Unspecified atrial fibrillation (principal); Z79.01 Long term (current) use of anticoagulants
CPT/HCPCS: 36415; 85610